=== PATIENT | male | born 1980 | race Caucasian/White ===

== ENCOUNTER 2017-07-05 22:30 | Emergency (ER) | payer OTHER ==
[2017-07-05] MEDS: IBUPROFEN 600 MG TAB PO (23:07)
[2017-07-05] MEDS: DIPHTH/TET/ACEL PERTUSS (ADULT) 0.5 ML VIAL IM* (23:07)
== END 2017-07-06 01:35 | disposition home or self-care (01) ==
LOC: E/R 22:30
DX: S00.81XA Abrasion of other part of head, initial encounter (principal); S60.221A Contusion of right hand, initial encounter; S09.90XA Unspecified injury of head, initial encounter; Y04.0XXA Assault by unarmed brawl or fight, initial encounter; Z23 Encounter for immunization
CPT/HCPCS: 73130; 73130-RT; 90471; 90715; 99283-25